=== PATIENT | male | born 1980 | race Caucasian/White ===

== ENCOUNTER 2020-07-17 05:01 | Emergency (ER) | payer OTHER ==
--- NOTE | 2020-07-17 06:17 | XR ---
EXAM: XR Chest, 1 View CLINICAL HISTORY: ITS.REASON XR Reason: cough TECHNIQUE: Frontal view of the chest. COMPARISON: No relevant prior studies available. FINDINGS: Lungs: Unremarkable. Pleural space: Unremarkable. Heart: Unremarkable. Mediastinum: Unremarkable. Bones/joints: Unremarkable. IMPRESSION: Normal chest x-ray.
--- NOTE | 2020-07-17 06:58 | ED ---
URI HPI - General Chief Complaint: Upper Respiratory Infection Stated Complaint: Cough,Headache Time Seen by Provider: 07/17/20 05:03 Source: patient Mode of arrival: ambulatory Limitations: no limitations - Related Data Allergies Allergy/AdvReac Type Severity Reaction Status Date / Time No Known Allergies Allergy Verified 07/17/20 05:10 Review of Systems ROS Statement: Those systems with pertinent positive or pertinent negative responses have been documented in the HPI. ROS Other: All systems not noted in ROS Statement are negative. Past Medical History Past Medical History: Asthma, Diabetes Mellitus History of Any Multi-Drug Resistant Organisms: None Reported Past Surgical History: No Surgical Hx Reported Past Psychological History: Depression Smoking Status: Never smoker Past Alcohol Use History: Rare Past Drug Use History: None Reported General Exam Limitations: no limitations Course Vital Signs 07/17/20 07/17/20 05:05 06:44 Temperature 99 F 98.7 F Pulse Rate 91 88 Respiratory 20 20 Rate Blood Pressure 164/94 147/88 O2 Sat by Pulse 96 97 Oximetry Medical Decision Making - Lab Data Lab Results 07/17/20 Range/Units 05:35 Coronavirus (PCR) Detected A (Not Detectd) Disposition Clinical Impression: Coronavirus infection Disposition: HOME SELF-CARE Condition: Good Instructions (If sedation given, give patient instructions): Coronavirus Disease 2019 (COVID-19) Is patient prescribed a controlled substance at d/c from ED?: No Referrals: Tuan Sanders MD [Primary Care Provider] - 1-2 days
[2020-07-17] MEDS ORDERED: BAMLANIVIMAB (EUA) 700 MG, ETESEVIMAB (EUA) 1,400 MG in SODIUM CHLORIDE 0.9% 50 ML IVPB ONE (07:50)
[2020-07-17] MEDS ORDERED: SODIUM CHLORIDE 0.9% 50 ML IVPB ONE (08:11)
[2020-07-17 09:56] VITALS: BP 150/88; PULSE 89; RESP 18; TEMP 98.9
== END 2020-07-17 09:52 | disposition home or self-care (01) ==
LOC: EC 05:01
DX: U07.1 COVID-19 (principal); J45.909 Unspecified asthma, uncomplicated; E11.9 Type 2 diabetes mellitus without complications; F32.9 Major depressive disorder, single episode, unspecified
CPT/HCPCS: 71045; 87635; 96361; 96365; 99285